=== PATIENT | female | born 1970 | race Two or more races ===

== ENCOUNTER 2024-06-29 18:14 | Inpatient (IN) | payer OTHER ==
[~2024-06-29] VITALS: Ht 157.5 cm; Wt 62.1 kg
[~2024-06-29 18:14] MED LIST: PANTOPRAZOLE SODIUM 40 MG/VIAL VIAL IV PUSH SCH
[2024-06-29] MEDS ORDERED: HUMALOG100 UNIT/2 SQ (18:39)
[2024-06-29] MEDS ORDERED: COZAAR100 MG PO (18:39)
[2024-06-29] MEDS ORDERED: FOLIC ACID1 MG PO (18:40)
[2024-06-29] MEDS ORDERED: ATORVASTATIN CA20 MG PO (18:40)
[2024-06-29] MEDS ORDERED: INSULIN REGULAR, HUMAN 1,000 UNIT/10 ML UNITS SUBCUTANEO ONE (19:00)
[2024-06-29 19:49] LABS: HEMATOCRIT 37.7 % (36.0-45.00); HEMOGLOBIN 12.1 g/dL (12.0-15.00); MEAN CELL VOLUME 88.2 fL (80.00-100.00); MEAN CORPUSCULAR HEMOGLOBIN 28.2 pg (27.00-32.0); PLATELET COUNT 305 K/uL (150-450); RED BLOOD COUNT 4.27 M/uL (4.00-6.00); RED CELL DISTRIBUTION WIDTH 13.4 % (11.5-14.5)
[2024-06-29 20:19] LABS: ALBUMIN 3.6 gm/dL (3.4-5.0); BILIRUBIN TOTAL 2.17 mg/dL (0.3-1.2); CALCIUM 9.7 mg/dL (8.5-10.1); CREATININE SERUM 0.93 mg/dL (0.55-1.02); GFR 63.56; GLOBULINA 3.8 G/DL (2.4-3.5); POTASSIUM 4.54 mEq/L (3.5-5.1); TOTAL PROTEIN 7.4 gm/dL (6.4-8.2)
[2024-06-29 21:32] LABS: PH,URINE 5.5 (5.0-8.0); URINE APPEARANCE Clear; URINE BILIRRUBIN Negative (NEGATIVE); URINE BLOOD Negative; URINE COLOR Yellow; URINE LEUKOCYTE Trace; URINE NITRATE Positive; URINE PROTEIN Negative (NEGATIVE); URINE UROBILINOGEN 0.2 E.U./dl
[2024-06-29 21:36] LABS: URINE BACTERIA 908.1 uL (0.0-1933); URINE EPITHELIAL CELLS 13.7 uL (0.0-38.8); URINE RBC 6.6 uL (0.0-20.8); URINE WBC 193.3 uL (0.0-23.2)
[2024-06-29 21:38] LABS: URINE CAST 0.29 uL (0.0-1.40); URINE GLUCOSE >=1000 MG/DL (NEGATIVE); URINE KETONE 80 (NEGATIVE)
[2024-06-29] MEDS ORDERED: 0.9 % SODIUM CHLORIDE 1,000 ML IV ONE (21:45)
[2024-06-29] MEDS ORDERED: CIPROFLOXACIN IN 5 % DEXTROSE 400 MG/200 ML PIGGYBAG IV ONE ×2 (21:45→22:29)
[2024-06-29] MEDS ORDERED: DEXTROSE 50 % IN WATER 0.5 G/ML DISP.SYRIN IV PRN (23:45)
[2024-06-29] MEDS ORDERED: INSULIN LISPRO 1,000 UNIT/10 ML UNITS SUBCUTANEO PRN (23:45)
[2024-06-30 06:28] LABS: HEMATOCRIT 35.3 % (36.0-45.00); HEMOGLOBIN 11.7 g/dL (12.0-15.00); MEAN CELL VOLUME 89.2 fL (80.00-100.00); MEAN CORPUSCULAR HEMOGLOBIN 29.6 pg (27.00-32.0); MEAN CORPUSCULAR HGB CONC 33.2 g/dl (32.0-36.0); PLATELET COUNT 263 K/uL (150-450); RED BLOOD COUNT 3.96 M/uL (4.00-6.00); RED CELL DISTRIBUTION WIDTH 13.3 % (11.5-14.5)
[2024-06-30 06:30] LABS: ERYTHROCYTE SEDIMENTATION RATE 63 mm/hr
[2024-06-30 06:51] LABS: BILIRUBIN TOTAL 2.58 mg/dL (0.3-1.2); CALCIUM 9.1 mg/dL (8.5-10.1); CREATININE SERUM 0.94 mg/dL (0.55-1.02); GFR 62.78; GLOBULINA 3.7 G/DL (2.4-3.5); POTASSIUM 5.35 mEq/L (3.5-5.1); TOTAL PROTEIN 6.7 gm/dL (6.4-8.2)
[2024-06-30 07:49] LABS: C-REACTIVE PROTEIN 13.6 MG/DL (0.00-0.29)
[2024-06-30 08:00] VITALS: BP 126/73; O2SAT 96
[2024-06-30] MEDS ORDERED: levoFLOXacin IN DEXTROSE 5 % 150 ML IV SCH (09:05)
[2024-06-30] MEDS ORDERED: PANTOPRAZOLE SODIUM 40 MG TABLET.DR PO SCH (09:10)
[2024-06-30] MEDS ORDERED: ENOXAPARIN SODIUM 40 MG/0.4 ML SYRINGE SUBCUTANEO SCH (09:10)
[2024-06-30] MEDS ORDERED: 0.9 % SODIUM CHLORIDE 1,000 ML IV SCH (09:15)
[2024-06-30] MEDS ORDERED: ENOXAPARIN SODIUM 40 MG/0.4 ML SYRINGE SUBCUTANEO ONE (09:37)
[2024-06-30] MEDS ORDERED: SODIUM POLYSTYRENE SULFONATE 15 G/4 TSP TSP PO SCH (10:15)
[2024-06-30] MEDS ORDERED: KETOROLAC TROMETHAMINE 30 MG VIAL IV PRN (10:30)
[2024-06-30] MEDS ORDERED: MORPHINE SULFATE 2 MG/ML CARTRIDGE IV PRN (10:30)
[2024-06-30] MEDS ORDERED: MULTIVIT-MIN/IRON FUM/FOLIC AC 1 TAB TABLET PO SCH (10:44)
[2024-06-30] MEDS ORDERED: FOLIC ACID 1 MG TABLET PO SCH (10:44)
[2024-06-30] MEDS ORDERED: AMINO ACIDS 1 EACH TABLET PO SCH (10:45)
[2024-06-30 11:00] LABS: ABG PO2 80.1 mmHg (80-100); BASE EXCESS -3.3 mmol/l; BICARBONATE 21.5 mmol/l (23-25); SaO2 95.2 %; Tco2 22.7 mmol/l; o2 21 %
[2024-06-30 11:01] LABS: allen test SATISFACTORY; puncture site RADIAL LEFT
[2024-06-30 11:39] VITALS: BP 148/80
[2024-06-30] MEDS ORDERED: CYANOCOBALAMIN (VITAMIN B-12) 1,000 MCG TABLET PO SCH (12:00)
[2024-06-30] MEDS ORDERED: IRBESARTAN 300 MG TABLET PO SCH (12:00)
[2024-06-30 17:13] VITALS: BP 104/62; O2SAT 97
[2024-06-30] MEDS ORDERED: ONDANSETRON HCL 2 MG/ML VIAL IV PRN (21:45)
[2024-07-01 02:42] VITALS: BP 120/63; O2SAT 95
[2024-07-01 07:13] LABS: HEMATOCRIT 33.6 % (36.0-45.00); HEMOGLOBIN 10.9 g/dL (12.0-15.00); MEAN CELL VOLUME 89.8 fL (80.00-100.00); MEAN CORPUSCULAR HEMOGLOBIN 29.2 pg (27.00-32.0); MEAN CORPUSCULAR HGB CONC 32.6 g/dl (32.0-36.0); PLATELET COUNT 233 K/uL (150-450); RED BLOOD COUNT 3.74 M/uL (4.00-6.00); RED CELL DISTRIBUTION WIDTH 13.2 % (11.5-14.5)
[2024-07-01 07:51] LABS: ALBUMIN 2.6 gm/dL (3.4-5.0); BILIRUBIN TOTAL 1.61 mg/dL (0.3-1.2); CALCIUM 8.5 mg/dL (8.5-10.1); CREATININE SERUM 1.65 mg/dL (0.55-1.02); GFR 32.8; GLOBULINA 3.4 G/DL (2.4-3.5); MAGNESIUM 1.9 mg/dL (1.8-2.4); PHOSPHOROUS 3.6 mg/dL (2.5-4.9); POTASSIUM 4.42 mEq/L (3.5-5.1)
[2024-07-01 08:48] VITALS: BP 109/62; O2SAT 98
[2024-07-01] MEDS ORDERED: INSULIN GLARGINE,HUM.REC.ANLOG 1,000 UNITS/10 ML UNITS SUBCUTANEO STA (11:39)
[2024-07-01] MEDS ORDERED: INSULIN REGULAR, HUMAN 1,000 UNIT/10 ML UNITS IV STA (11:39)
[2024-07-01] MEDS ORDERED: INSULIN LISPRO 1,000 UNIT/10 ML UNITS SUBCUTANEO STA (11:40)
[2024-07-01] MEDS ORDERED: PANTOPRAZOLE SODIUM 40 MG/VIAL VIAL IV NR (12:00)
[2024-07-01] MEDS ORDERED: CITRIC ACID/SODIUM CITRATE 30 ML BLIST.PACK PO NR (14:00)
[2024-07-01] MEDS ORDERED: INSULIN REGULAR, HUMAN 1,000 UNIT/10 ML UNITS IV NR (15:00)
[2024-07-01] MEDS ORDERED: INSULIN LISPRO 1,000 UNIT/10 ML UNITS SUBCUTANEO NR (15:00)
[2024-07-01 15:20] VITALS: BP 97/58; O2SAT 99
[2024-07-01] MEDS ORDERED: CITRIC ACID/SODIUM CITRATE 30 ML BLIST.PACK PO SCH (17:00)
[2024-07-02 02:46] VITALS: BP 114/63; O2SAT 97
[2024-07-02 06:46] LABS: ALBUMIN 2.6 gm/dL (3.4-5.0); BILIRUBIN TOTAL 1.04 mg/dL (0.3-1.2); CALCIUM 8.4 mg/dL (8.5-10.1); CREATININE SERUM 2.59 mg/dL (0.55-1.02); GFR 19.49; GLOBULINA 3.2 G/DL (2.4-3.5); MAGNESIUM 1.8 mg/dL (1.8-2.4); PHOSPHOROUS 3.1 mg/dL (2.5-4.9); POTASSIUM 3.88 mEq/L (3.5-5.1); TOTAL PROTEIN 5.8 gm/dL (6.4-8.2)
[2024-07-02 06:47] LABS: HEMATOCRIT 31.3 % (36.0-45.00); HEMOGLOBIN 10.3 g/dL (12.0-15.00); MEAN CELL VOLUME 87.9 fL (80.00-100.00); MEAN CORPUSCULAR HEMOGLOBIN 28.9 pg (27.00-32.0); MEAN CORPUSCULAR HGB CONC 32.9 g/dl (32.0-36.0); PLATELET COUNT 257 K/uL (150-450); RED BLOOD COUNT 3.56 M/uL (4.00-6.00)
[2024-07-02] MEDS ORDERED: INSULIN GLARGINE,HUM.REC.ANLOG 1,000 UNITS/10 ML UNITS SUBCUTANEO SCH (09:00)
[2024-07-02] MEDS ORDERED: ENOXAPARIN SODIUM 30 MG/0.3 ML SYRINGE SUBCUTANEO SCH (09:00)
[2024-07-02] MEDS ORDERED: CEFTRIAXONE SODIUM 2,000 MG VIAL IV SCH (09:00)
[2024-07-02] MEDS ORDERED: PANTOPRAZOLE SODIUM 40 MG/VIAL VIAL IV PUSH SCH (09:00)
[2024-07-02 10:30] VITALS: BP 111/54
[2024-07-02 18:27] VITALS: BP 155/67
[2024-07-02] MEDS ORDERED: DICYCLOMINE HCL 10 MG CAPSULE PO PRN (19:15)
[2024-07-03 02:24] VITALS: BP 144/72; O2SAT 94
[2024-07-03] MEDS ORDERED: INSULIN LISPRO 1,000 UNIT/10 ML UNITS SUBCUTANEO SCH (08:00)
[2024-07-03 08:26] LABS: HEMATOCRIT 28.2 % (36.0-45.00); HEMOGLOBIN 9.6 g/dL (12.0-15.00); MEAN CELL VOLUME 86.2 fL (80.00-100.00); MEAN CORPUSCULAR HEMOGLOBIN 29.4 pg (27.00-32.0); MEAN CORPUSCULAR HGB CONC 34.1 g/dl (32.0-36.0); PLATELET COUNT 236 K/uL (150-450); RED BLOOD COUNT 3.28 M/uL (4.00-6.00); RED CELL DISTRIBUTION WIDTH 13.6 % (11.5-14.5)
[2024-07-03] MEDS ORDERED: levoFLOXacin IN DEXTROSE 5 % 150 ML IV SCH (09:00)
[2024-07-03] MEDS ORDERED: INSULIN GLARGINE,HUM.REC.ANLOG 1,000 UNITS/10 ML UNITS SUBCUTANEO SCH (09:00)
[2024-07-03 09:23] VITALS: BP 137/70; O2SAT 97
[2024-07-03 09:29] LABS: ALBUMIN 2.4 gm/dL (3.4-5.0); BILIRUBIN TOTAL 1.11 mg/dL (0.3-1.2); CALCIUM 8.2 mg/dL (8.5-10.1); CREATININE SERUM 2.34 mg/dL (0.55-1.02); GFR 21.91; GLOBULINA 3.1 G/DL (2.4-3.5); MAGNESIUM 1.9 mg/dL (1.8-2.4); PHOSPHOROUS 3.3 mg/dL (2.5-4.9); POTASSIUM 3.97 mEq/L (3.5-5.1); TOTAL PROTEIN 5.5 gm/dL (6.4-8.2)
[2024-07-03] MEDS ORDERED: RINGERS SOLUTION,LACTATED 1,000 ML IV SCH (11:15)
[2024-07-03 18:43] VITALS: BP 195/81
[2024-07-03] MEDS ORDERED: hydrALAZINE HCL 20 MG VIAL IV PRN (21:45)
[2024-07-04 01:49] VITALS: BP 153/86
[2024-07-04] MEDS ORDERED: INSULIN LISPRO 1,000 UNIT/10 ML UNITS SUBCUTANEO SCH ×2 (08:00→12:00)
[2024-07-04 08:35] VITALS: BP 172/80
[2024-07-04] MEDS ORDERED: AMLODIPINE BESYLATE 5 MG TABLET PO SCH (09:00)
[2024-07-04] MEDS ORDERED: INSULIN GLARGINE,HUM.REC.ANLOG 1,000 UNITS/10 ML UNITS SUBCUTANEO SCH (09:00)
[2024-07-04] MEDS ORDERED: INSULIN GLARGINE,HUM.REC.ANLOG 1,000 UNITS/10 ML UNITS SUBCUTANEO NR (10:15)
[2024-07-04 13:24] LABS: CALCIUM 9.1 mg/dL (8.5-10.1); CREATININE SERUM 2.17 mg/dL (0.55-1.02); GFR 23.91; POTASSIUM 3.81 mEq/L (3.5-5.1)
[2024-07-04] MEDS ORDERED: hydrALAZINE HCL 50 MG TABLET PO SCH (17:00)
[2024-07-04] MEDS ORDERED: SODIUM CHLORIDE 0.45 % 1,000 ML IV SCH (17:30)
[2024-07-04] MEDS ORDERED: RINGERS SOLUTION,LACTATED 1,000 ML IV SCH (19:00)
[2024-07-04 19:22] VITALS: BP 152/75; O2SAT 97
[2024-07-05 00:44] VITALS: BP 153/64; O2SAT 99
[2024-07-05 06:08] LABS: HEMATOCRIT 30.9 % (36.0-45.00); HEMOGLOBIN 10.4 g/dL (12.0-15.00); MEAN CELL VOLUME 86.9 fL (80.00-100.00); MEAN CORPUSCULAR HEMOGLOBIN 29.1 pg (27.00-32.0); MEAN CORPUSCULAR HGB CONC 33.5 g/dl (32.0-36.0); PLATELET COUNT 311 K/uL (150-450); RED BLOOD COUNT 3.56 M/uL (4.00-6.00); RED CELL DISTRIBUTION WIDTH 13.3 % (11.5-14.5)
[2024-07-05 06:56] LABS: ALBUMIN 2.7 gm/dL (3.4-5.0); BILIRUBIN TOTAL 0.97 mg/dL (0.3-1.2); CALCIUM 8.9 mg/dL (8.5-10.1); CREATININE SERUM 1.73 mg/dL (0.55-1.02); GFR 31.05; GLOBULINA 3.6 G/DL (2.4-3.5); MAGNESIUM 1.8 mg/dL (1.8-2.4); PHOSPHOROUS 2.7 mg/dL (2.5-4.9); POTASSIUM 3.68 mEq/L (3.5-5.1); TOTAL PROTEIN 6.3 gm/dL (6.4-8.2)
[2024-07-05 07:05] LABS: FERRITIN 143.8 NG/ML (8-252)
[2024-07-05 08:36] VITALS: BP 147/66
[2024-07-05] MEDS ORDERED: AMLODIPINE BESYLATE 5 MG TABLET PO SCH (09:00)
[2024-07-05] MEDS ORDERED: INSULIN GLARGINE,HUM.REC.ANLOG 1,000 UNITS/10 ML UNITS SUBCUTANEO SCH (09:00)
[2024-07-05] MEDS ORDERED: NIFEDIPINE 60 MG TAB.SA.OSM PO SCH (09:00)
[2024-07-05 18:53] VITALS: BP 144/79
[2024-07-05] MEDS ORDERED: LACTOBACILLUS ACIDOPHILUS 1 CAP CAP PO STA (20:24)
[2024-07-06 01:56] VITALS: BP 146/72; O2SAT 98
[2024-07-06] MEDS ORDERED: LACTOBACILLUS ACIDOPHILUS 1 CAP CAP PO SCH (08:00)
[2024-07-06 08:54] LABS: ALBUMIN 2.8 gm/dL (3.4-5.0); BILIRUBIN TOTAL 1.1 mg/dL (0.3-1.2); CALCIUM 9.4 mg/dL (8.5-10.1); CREATININE SERUM 1.72 mg/dL (0.55-1.02); GFR 31.26; GLOBULINA 3.7 G/DL (2.4-3.5); POTASSIUM 3.67 mEq/L (3.5-5.1); TOTAL PROTEIN 6.5 gm/dL (6.4-8.2)
[2024-07-06] MEDS ORDERED: PANTOPRAZOLE SODIUM 40 MG TABLET.DR PO SCH (09:00)
[2024-07-06 10:00] VITALS: BP 151/72; O2SAT 98
[2024-07-06] MEDS ORDERED: DICYCLOMINE HCL10 MG PO (13:44)
[2024-07-06] MEDS ORDERED: PANTOPRAZOLE SO40 MG PO (13:45)
[2024-07-06] MEDS ORDERED: PRE PROTEIN1 EACH PO (13:45)
[2024-07-06] MEDS ORDERED: HYDRALAZINE HCL50 MG PO (13:45)
[2024-07-06] MEDS ORDERED: NIFEDIPINE ER60 MG PO (13:45)
== END 2024-07-06 14:41 | disposition home or self-care (01) | DRG 872 ==
LOC: ER 18:17 → MEDJ 06-30 10:44
PROVIDERS: General Practice; Internal Medicine Gastroenterology; Internal Medicine Nephrology; ADMIT Internal Medicine; ATTEND Internal Medicine
PROC: BW21ZZZ Computerized Tomography (CT Scan) of Abdomen and Pelvis (ICD-10-PCS; principal; 2024-06-29)
PROC: BT43ZZZ Ultrasonography of Bilateral Kidneys (ICD-10-PCS; 2024-07-02)
DX: A41.9 Sepsis, unspecified organism (principal); N30.00 Acute cystitis without hematuria; E80.1 Porphyria cutanea tarda; N17.9 Acute kidney failure, unspecified; E10.65 Type 1 diabetes mellitus with hyperglycemia; E83.119 Hemochromatosis, unspecified; D64.89 Other specified anemias; I12.9 Hypertensive chronic kidney disease with stage 1 through stage 4 chronic kidney disease, or unspecified chronic kidney disease; N18.9 Chronic kidney disease, unspecified; Z79.4 Long term (current) use of insulin